=== PATIENT | male | born 1950 | race Caucasian/White ===

== ENCOUNTER 2024-10-07 13:25 | Emergency (ER) | payer MEDICARE, OTHER, SELFPAY ==
--- NOTE | ~2024-10-07 | XR_ITS ---
XR wrist LT min 3V Ordering provider: Shay Mc APRN History: . left wrist pain- twisting injury using drill 2 days ago . Comparison: None. FINDINGS: BONES: Comminuted fracture is seen in the distal shaft of the left ulna. No other fractures seen. Old fracture in near to the ulnar styloid is seen. 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 Ot herwise, Well maintained. SOFT TISSUES: Normal. IMPRESSION: Comminuted fracture in the distal shaft of the left ulna. Reviewed, dictated and finalized at location A.
--- NOTE | 2024-10-07 13:34 | ED.UPPEXIN ---
HPI - Extremity Injury (Upper) General Chief Complaint: Extremity Injury, Upper Stated Complaint: Left Wrist Pain Time Seen by Provider: 10/07/24 13:34 Source: patient Mode of arrival: ambulatory Limitations: no limitations History of Present Illness HPI narrative: Joaquin is a 74-year-old male patient presenting to the clinic today with complaints of left wrist pain x2 days. He reports he was using a torque drill and the bit became stuck and it twisted his wrist around. Having pain to the ulnar aspect of the left wrist with localized swelling. Rates his pain currently a 3/10. No radiation of pain down the arm. Has been wearing a wrist brace and been taking Tylenol as needed for pain. Related Data Allergies Allergy/AdvReac Type Severity Reaction Status Date / Time No Known Allergies Allergy Mild Verified 10/07/24 13:48 Review of Systems Review of Systems: Pertinent positives per HPI. Patient denies any fever, chills, rash, headache, visual changes, dizziness, cough, runny nose, sore throat, shortness of breath, chest pain, palpitations, nausea, vomiting, diarrhea, constipation, abdominal pain, or any urinary issues. PMFSH Comments At the time of my signature, I reviewed and agree with the nursing past medical, surgical, social, and family history. There is no relevant family history pertinent to the patient complaint. Exam Narrative: General: Well-developed, well nourished, in no apparent distress Head: Normocephalic, atraumatic. Cardio: Regular rate and rhythm, s1 and s2 normal, no murmur appreciated. Resp: Clear to auscultation bilaterally, no rhonchi, rales, wheezing or rubs. Musculoskeletal: Deformity to the left ulnar wrist, localized swelling over the left distal ulna wrist, tender to palpation over the left ulnar wrist, pain with ulnar deviation, grossly normal range of motion, muscle strength strong and equal, peripheral pulse strong, no cyanosis, normal gait and station Course Course Emergency Course: Portions of this record may have been created with voice recognition software. Level of Care: Express Care Visit Vital Signs Vital signs: Vital Signs Temperature 36.7 C 10/07/24 13:49 Pulse Rate 85 10/07/24 13:49 Respiratory Rate 16 10/07/24 13:49 Blood Pressure 135/78 10/07/24 13:49 Pulse Oximetry 99 10/07/24 13:49 Oxygen Delivery Room Air 07/18/25 13:49 Temperature 36.7 C 10/07/24 13:49 Pulse Rate 85 10/07/24 13:49 Respiratory Rate 16 10/07/24 13:49 Blood Pressure 135/78 10/07/24 13:49 Pulse Oximetry 99 10/07/24 13:49 Oxygen Delivery Room Air 10/07/24 13:49 Vital signs reviewed MDM - Extremity Injury (Upper) MDM Narrative Medical decision making narrative: At the time of visit patient is resting comfortably on the exam table. Patient appears to be nontoxic. Patient was using a torque drill when the drill bit got stuck and it twisted his left wrist 2 days ago. Has obvious deformity of the left ulnar wrist with localized swelling. No radiation of pain down the arm. Pain with ulnar deviation to the left ulna wrist, is able to hyper extend and flex the wrist with very little pain. Radial pulse intact any has good sensation circulation and motion. Will order x-ray of the left wrist Diagnostics: Left wrist x-ray was performed-comminuted fracture of the left distal ulna shaft Plan: Patient has a comminuted fracture of the left distal ulna shaft. Ulnar gutter splint ordered and applied. CPM normal after application of splint. Arm sling was applied. Prescription for hydrocodone was sent for moderate to severe pain and may take Tylenol/Motrin as needed for [id number] pain. Rice treatment. Will have patient follow-up with Dr. Keys- pathology transcriptionist ortho or may follow up with [facility]. Supportive measures were discussed with the patient and they voiced understanding discharge instructions and agrees to treatment plan. Return precautions reviewed Differential Diagnosis Differential diagnosis: Likely sprain and strain of wrist, fracture of wrist and other Imaging Data Radiologist's impression: ITS Impressions Wrist X-Ray 10/07/24 14:12 IMPRESSION: Comminuted fracture in the distal shaft of the left ulna. Discharge Plan Discharge Clinical Impression: Distal end of ulna fracture, closed Qualifiers: Encounter type: initial encounter Fracture morphology: other fracture Laterality: left Qualified Code(s): S52.692A - Other fracture of lower end of left ulna, initial encounter for closed fracture Patient Disposition: Home Condition: Stable Instructions: Antibiotic Form, Wrist Fracture in Adults (ED) Additional Instructions: X-ray shows a comminuted fracture of the distal shaft of the left ulna Rest, ice, elevate, and wear ulnar gutter splint/arm sling as directed May take Tylenol/motrin as needed for mild pain Hydrocodone/acetaminophen as needed every 8 hours for moderate to severe pain-this medication has Tylenol in it Gradually bear weight No running or sports until healed. Follow up with your PCP if symptoms persist more than 1 week. Follow-up with Dr. Keys- orthopedic- call office today to schedule an appointment May follow-up with [facility] provider if you choose. Patient Language: [place] Island[place] Prescriptions: New hydrocodone-acetaminophen 5-325 mg tablet 1 tablet PO Q8H PRN (Reason: pain) 3 Days Qty: 10 0RF Follow-up/Referrals: Clifton Keys MD [Physician] - 1 Day (Comminuted fracture in the distal shaft of the left ulna) [facility] [Primary Care Provider] - Time of Disposition: 14:26 Quality NIHSS Nursing Documentation ED NIHSS nursing documentation: reviewed/agree
[2024-10-07 13:49] VITALS: BP 135/78; PULSE 85; RESP 16; TEMP 36.7; O2SAT 99
== END 2024-10-07 14:45 | disposition home or self-care (01) ==
PROVIDERS: Emergency Provider Nurse Practitioner Family
DX: S52.692A Other fracture of lower end of left ulna, initial encounter for closed fracture (principal); W29.8XXA Contact with other powered hand tools and household machinery, initial encounter
CPT/HCPCS: 29125; 73110; 99204; A4565; G0463

== ENCOUNTER 2025-02-19 10:27 | Emergency (ER) | payer MEDICARE, OTHER, SELFPAY ==
[2025-02-19 10:38] VITALS: BP 139/84; PULSE 82; RESP 16; TEMP 36.2; O2SAT 99
--- NOTE | 2025-02-19 10:45 | ED.UPPEXIN ---
HPI - Extremity Injury (Upper) General Chief Complaint: Extremity Injury, Upper Stated Complaint: R ARM INJURY Time Seen by Provider: 02/19/25 10:38 Source: patient and RN notes reviewed Mode of arrival: ambulatory Limitations: no limitations History of Present Illness HPI narrative: 74 year old male patient with history of psoriatic arthritis, complains today of localized swelling and tenderness of the right forearm. 10 days ago, he was using a crank on a machine with his right hand, when the crank broke and the handle struck him in the forearm with great force, causing extensive bruising and a skin tear to the area as well as some localized swelling to the mid forearm. He has been caring for the skin tear, which has been healing, but patient is concerned that the localized swelling is still present. The arm is not painful, but the swelling is only painful with palpation. Related Data Home Medications ?Medication ?Instructions ?Recorded ?Confirmed ?Last Taken ?Type Humira 02/19/25 Unknown History Allergies Allergy/AdvReac Type Severity Reaction Status Date / Time No Known Allergies Allergy Mild Verified 02/19/25 10:39 [facility] Social History Social History Smoking status: Never smoker Lack of Transportation: No Lack of Food: Never True Current Housing: I Have Housing Concerned About Future Housing: No Difficulty Paying Gas/Electric Bills: No Difficulty Paying for Meds: No Currently Unemployed: No Education: Bachelor's Degree Difficulty w/ Childcare or Family Care: No Comments At time of signature, I have reviewed and agree with nursing past medical, surgical, social and family history unless otherwise noted. Please see nursing chart for further information. There is no relevant family history pertinent to the presenting complaint Exam Narrative: GENERAL: Well-appearing, well-nourished, and in no acute distress. HEAD: Normocephalic, atraumatic. EYES: EOMI. No redness or drainage. Conjunctivae normal. ENT: Mucous membranes pink and moist. NECK: Normal AROM. CHEST: No respiratory distress. EXTREMITIES:Right forearm: 3x3cm area of localized swelling without ecchymosis or erythema. Mildly TTP. Small, scabbed skin tear overlying without any signs of infection. Majority of the rest of the forearm is covered in healing ecchymosis and is NTTP. Distal sensation intact. Capillary refill normal. Radial pulse normal. Full range of motion of the elbow and wrist without pain. SKIN: Warm, dry, no rash. Capillary refill normal. Normal skin turgor. NEURO: No focal deficits. Alert and oriented x3. Gait steady. PSYCH: Normal affect. No signs of depression or anxiety. Course Course Level of Care: Express Care Visit Vital Signs Vital signs: Vital Signs Temperature 97.2 F L 02/19/25 10:38 Pulse Rate 82 02/19/25 10:38 Respiratory Rate 16 02/19/25 10:38 Blood Pressure 139/84 02/19/25 10:38 Pulse Oximetry 99 02/19/25 10:38 Temperature 97.2 F L 02/19/25 10:38 Pulse Rate 82 02/19/25 10:38 Respiratory Rate 16 02/19/25 10:38 Blood Pressure 139/84 02/19/25 10:38 Pulse Oximetry 99 02/19/25 10:38 Reviewed MDM - Extremity Injury (Upper) MDM Narrative Medical decision making narrative: 74 year old male patient with history of psoriatic arthritis, complains today of localized swelling and tenderness of the right forearm. 10 days ago, he was using a crank on a machine with his right hand, when the crank broke and the handle struck him in the forearm with great force, causing extensive bruising and a skin tear to the area as well as some localized swelling to the mid forearm. He has been caring for the skin tear, which has been healing, but patient is concerned that the localized swelling is still present. The arm is not painful, but the swelling is only painful with palpation. Upon exam,3x3cm area of localized swelling without ecchymosis or erythema. Mildly TTP. Small, scabbed skin tear overlying without any signs of infection. Majority of the rest of the forearm is covered in healing ecchymosis and is NTTP. Distal sensation intact. Capillary refill normal. Radial pulse normal. Full range of motion of the elbow and wrist without pain. Patient's exam is consistent with hematoma. No signs of infection present. Reassurance given that symptoms will resolve with time. Recommend warm compresses and Tylenol if needed. Patient agrees with plan. Vital signs stable. Anticipatory guidance given. Differential Diagnosis Differential diagnosis: Likely other (Abscess, cellulitis, hematoma) Critical Care Time Critical Care Time Critical Care Time: No Discharge Plan Discharge Clinical Impression: Traumatic hematoma of right forearm Patient Disposition: Home Condition: Stable Instructions: Hematoma (ED) Additional Instructions: The area on your forearm seems to be a hematoma, which is collection of blood under the skin that should resolve on its own with time. You may try warm compresses to facilitate this. As discussed, if you notice any increased pain, development of redness or red streaking up the arm, please follow-up with your PCP or go to the emergency room. Patient Language: Urdu Prescriptions: No Action Radha [facility]Other[facility] Time of Disposition: 10:47
== END 2025-02-19 10:50 | disposition home or self-care (01) ==
PROVIDERS: Emergency Provider Nurse Practitioner
DX: S50.11XA Contusion of right forearm, initial encounter (principal); W31.9XXA Contact with unspecified machinery, initial encounter
CPT/HCPCS: 99212; G0463